=== PATIENT | female | born 1985 | race Caucasian/White ===

== ENCOUNTER 2021-08-07 07:27 | Inpatient (IN) | payer MEDICAID ==
[~2021-08-07] VITALS: Ht 154.9 cm; Wt 83.9 kg
[2021-08-07] MEDS: MAGNESIUM/ALUMINUM HYDROXIDE/SIMETHICONE 30ML UDC PO SCH ×2 (07:30→21:51)
[2021-08-07] MEDS: SIMETHICONE 80MG TABLET CHEW PO SCH ×2 (07:30→21:51)
[2021-08-07] MEDS ORDERED: LIDOCAINE HCL 1% 20ML VIAL (Pyxis) INJ INFIL SCH (08:30)
[2021-08-07] MEDS ORDERED: CARBOPROST TROMETHAMINE 250 MCG/ML AMPUL IM PRN (08:30)
[2021-08-07] MEDS ORDERED: DEXT 5%/LR + PITOCIN 20UNITS/L 1,000 ML IV SCH ×2 (08:30→13:15)
[2021-08-07] MEDS ORDERED: NALOXONE HCL 0.4 MG/ML 1ML VIAL IM PRN (08:30)
[2021-08-07] MEDS ORDERED: METHYLERGONOVINE MALEATE 0.2 MG/ML IM PRN (08:30)
[2021-08-07] MEDS ORDERED: BUTORPHANOL TARTRATE 2 MG/ML VIAL IV PRN (08:30)
[2021-08-07 09:55] LABS: BASOPHILS % 0.3 % (0.0-2.0); EOSINOPHILS % 1.2 % (0.0-5.0); HEMATOCRIT. 39.9 % (36.0-48.0); LYMPHOCYTES % 20.6 % (20.0-50.0); MEAN CORPUSCULAR HEMOGLOBIN 30.8 pg (28.0-32.0); MEAN CORPUSCULAR VOLUME 94.3 fL (81.0-99.0); MEAN PLATELET VOLUME 8.5 fl (7.4-10.4); MONOCYTES % 7.9 % (2.0-8.0); PLATELET 204 x1000/uL (130-400); RED BLOOD CELL COUNT 4.23 mill/uL (4.2-5.4); RED CELL DISTRIBUTION WIDTH 15.1 % (11.6-14.6)
[2021-08-07 09:57] LABS: CLARITY URINE CLEAR (CLEAR); COLOR URINE YELLOW (YELLOW); KETONES URINE NEGATIVE (NEGATIVE); LEUKOCYTE ESTERASE URINE NEGATIVE (NEGATIVE); NITRITE URINE NEGATIVE (NEGATIVE); OCCULT BLOOD URINE NEGATIVE (NEGATIVE); PH URINE 6.5 (4.5-8.0); PROTEIN URINE NEGATIVE (NEGATIVE); SPECIFIC GRAVITY URINE 1.008 (1.005-1.030); UROBILINOGEN URINE 0.2 E.U./dL (0.2-1.0)
[2021-08-07] MEDS: LACTATED RINGERS 1,000 ML IV SCH ×2 (10:00→10:20)
[2021-08-07 10:10] LABS: INR 0.9; PARTIAL THROMBOPLASTIN TIME 23.9 sec (23.4-31.0); PROTHROMBIN TIME 9.9 sec (9.6-11.0)
[2021-08-07 10:27] LABS: *AMPHETAMINES SCREEN URINE NEGATIVE (NEGATIVE); *BARBITURATES SCREEN URINE NEGATIVE (NEGATIVE); *BENZODIAZEPINES SCREEN URINE NEGATIVE (NEGATIVE); *COCAINE SCREEN URINE NEGATIVE (NEGATIVE); CANNABINOID URINE SCREEN NEGATIVE (NEGATIVE); METHADONE URINE SCREEN NEGATIVE (NEGATIVE); PHENCYCLIDINE URINE SCREEN NEGATIVE (NEGATIVE)
[2021-08-07 10:36] LABS: OPIATES URINE SCREEN NEGATIVE (NEGATIVE)
[2021-08-07] MEDS ORDERED: ROPIVACAINE HCL/PF EPIDURAL 200 ML EPI SCH (12:30)
[2021-08-07] MEDS ORDERED: BENZOCAINE/LANOLIN/ALOE VERA SPRAY TOP PRN (13:15)
[2021-08-07] MEDS ORDERED: GLYCERIN/WITCH HAZEL LEAF MEDICATED PAD TOP PRN (13:15)
[2021-08-07] MEDS ORDERED: LANOLIN OINT 7GM TUBE TOP PRN (13:15)
[2021-08-07] MEDS ORDERED: RHO(D) IMMUNE GLOBULIN 300 MCG/SYR IM PRN (13:15)
[2021-08-07] MEDS ORDERED: DIPHENHYDRAMINE 25MG CAPSULE PO PRN (13:15)
[2021-08-07] MEDS ORDERED: BISACODYL 10MG SUPP PR PRN (13:15)
[2021-08-07] MEDS ORDERED: IBUPROFEN 400MG TABLET PO PRN (13:15)
[2021-08-07] MEDS ORDERED: HEMORRHOIDAL SUPP PR PRN (13:15)
[2021-08-07] MEDS ORDERED: ACETAMINOPHEN WITH CODEINE 300/30MG TABLET PO PRN (13:15)
[2021-08-07 13:28] LABS: HEPATITIS B SURFACE ANTIGEN NEGATIVE
[2021-08-07 16:30] VITALS: BP 95/56
[2021-08-07 17:00] VITALS: BP 91/52
[2021-08-07] MEDS: IBUPROFEN 800MG TABLET PO PRN (21:50)
[2021-08-07] MEDS: DOCUSATE SODIUM 100MG CAPSULE PO SCH (21:51)
[2021-08-08] VITALS: BP 95/57
[2021-08-08] MEDS: LACTATED RINGERS 1,000 ML IV SCH ×2 (00:33→09:41)
[2021-08-08 04:00] VITALS: BP 95/52
[2021-08-08 07:05] VITALS: BP 96/58
[2021-08-08] MEDS: FERROUS SULFATE 325MG TABLET PO SCH ×3 (07:30→18:12)
[2021-08-08] MEDS: MAGNESIUM/ALUMINUM HYDROXIDE/SIMETHICONE 30ML UDC PO SCH ×4 (07:30→21:07)
[2021-08-08] MEDS ORDERED: MORPHINE SULFATE/PF 1MG/ML 10ML AMP ONE (07:36)
[2021-08-08] MEDS ORDERED: KETOROLAC 60MG/2ML VIAL IM ONE (07:37)
[2021-08-08] MEDS ORDERED: EPHEDRINE SULFATE 50MG/ML VIAL ONE (07:37)
[2021-08-08] MEDS ORDERED: ONDANSETRON HCL 4MG/2ML INJ ONE (07:37)
[2021-08-08] MEDS ORDERED: DEXAMETHASONE 4MG/ML 1ML VIAL ONE (07:37)
[2021-08-08] MEDS ORDERED: CEFAZOLIN SODIUM 1000MG/VIAL ONE (07:37)
[2021-08-08 07:52] LABS: BASOPHILS % 0.2 % (0.0-2.0); EOSINOPHILS % 1.2 % (0.0-5.0); HEMATOCRIT. 36.4 % (36.0-48.0); HEMOGLOBIN. 12.4 g/dL (12.0-16.0); LYMPHOCYTES % 23.8 % (20.0-50.0); MEAN CORPUSCULAR HEMOGLOBIN 31.8 pg (28.0-32.0); MEAN CORPUSCULAR VOLUME 93.7 fL (81.0-99.0); MEAN PLATELET VOLUME 8.5 fl (7.4-10.4); NEUTROPHILS % 67.8 % (40.0-76.0); PLATELET 176 x1000/uL (130-400); RED BLOOD CELL COUNT 3.88 mill/uL (4.2-5.4); RED CELL DISTRIBUTION WIDTH 15.6 % (11.6-14.6)
[2021-08-08] MEDS: SIMETHICONE 80MG TABLET CHEW PO SCH ×4 (08:00→21:07)
[2021-08-08] MEDS ORDERED: DIPHENHYDRAMINE 50MG/ML VIAL IM PRN (08:15)
[2021-08-08] MEDS ORDERED: NALOXONE HCL 0.4 MG/ML 1ML VIAL IV PRN (08:15)
[2021-08-08] MEDS ORDERED: ONDANSETRON HCL 4MG/2ML INJ IM PRN (08:15)
[2021-08-08] MEDS ORDERED: KETOROLAC 30MG/ML VIAL IV PRN (09:00)
[2021-08-08] MEDS: PRENATAL VIT/FE FUMARATE/FA TABLET PO SCH (09:00)
[2021-08-08 10:45] VITALS: BP 102/62
[2021-08-08 16:24] VITALS: BP 98/62
[2021-08-08 19:15] VITALS: BP 105/59
[2021-08-08] MEDS: DOCUSATE SODIUM 100MG CAPSULE PO SCH (21:06)
[2021-08-08] MEDS: IBUPROFEN 800MG TABLET PO PRN (21:06)
[2021-08-09 00:01] VITALS: BP 97/57
[2021-08-09 04:00] VITALS: BP 105/59
[2021-08-09] MEDS ORDERED: MULT-1146 MT (07:11)
[2021-08-09] MEDS ORDERED: FERR-63 PO (07:11)
[2021-08-09] MEDS ORDERED: IBUP-2030 PO (07:11)
[2021-08-09 07:45] VITALS: BP 101/60
[2021-08-09] MEDS: SIMETHICONE 80MG TABLET CHEW PO SCH (09:20)
[2021-08-09] MEDS: PRENATAL VIT/FE FUMARATE/FA TABLET PO SCH (09:20)
[2021-08-09] MEDS: FERROUS SULFATE 325MG TABLET PO SCH (09:21)
== END 2021-08-09 10:00 | disposition home or self-care (01) | DRG 541 ==
LOC: 8 EST LDRP 07:27 → OBSVTOIN 08:35 → 8EST 16:56
PROVIDERS: ADMIT Obstetrics & Gynecology; ATTEND Obstetrics & Gynecology
PROC: 10E0XZZ Delivery of Products of Conception, External Approach (ICD-10-PCS; principal; 2021-08-08)
PROC: 0UB70ZZ Excision of Bilateral Fallopian Tubes, Open Approach (ICD-10-PCS; 2021-08-08)
PROC: 0W8NXZZ Division of Female Perineum, External Approach (ICD-10-PCS; 2021-08-08)
DX: O80 Encounter for full-term uncomplicated delivery (principal); Z37.0 Single live birth; Z20.822 Contact with and (suspected) exposure to COVID-19; Z3A.38 38 weeks gestation of pregnancy; Z30.2 Encounter for sterilization; Z64.1 Problems related to multiparity
CPT/HCPCS: 36415; 76805; 76818; 80305; 81003; 85025; 86592; 86703; 86762; 86850; 86900; 87340; 87426; 88302; G0378; J0690; J1100; J1885; J2274; J2405; J2590; J2795; J3490; J7120; Q0163; A4315